=== PATIENT | female | born 2000 | race Caucasian/White ===

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

== ENCOUNTER 2020-01-19 09:00 | Outpatient (RCR) | payer OTHER, SELFPAY ==
[2019-12-01 10:11] VITALS: BMI 31.2
--- NOTE | 2019-12-08 11:47 | HP.OTEVAL_ITS ---
Patient's Visit Information ANYA ALEGRE is a 19 year old F, referred to Occupational Therapy by ELIZA STATON, with a diagnosis of left TFCC tear. 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 pt has sx on 11/01/19. pt staes she has some deep pain brusing sensation over her left RF/LF. pt was casted 4 weeks and arrives to therapy with orthoplast custom wrist cock- up. pt reports no need for ajd. at this time. pt is right handed but would like to gain ROM and strength in her left hand/UE to use with ADLs and IADLs ind. - Pain left wrist 2 Pain Intensity Range: 4 - ROM Forearm: right WNL left pronation 45 suppination 5 Wrist: right 75/70 left 40/20 ROM Comments: right RD [address] 5 UD 10 - Strength Residential Plumber: right 75# left Not tested Lateral Pinch: right 12# left Not tested Tripod Pinch: right 20# left Not tested - Sensation Sensation Comments: pt reports pt was having difficulty with strange sensation over dorsome of LF/RF from MP to just proximal to PIP - Goals Goal:100% adherence to protocol: Yes Comment: TFCC protocol Goal:ROM equal to unaffected hand: Yes Comment: wrist flex/ex within 10* of unaffected, sup/pron 80* Goal:Residential Plumber/Pinch strength at least 75% of unaffected hand: Yes Comment: when released to strengthen Goal:No pain with affected hand use: Yes Goal:Full use of affected hand in daily activities including: Yes Goal:Decrease scar hypersensitivity: Yes - Rehabilitation General Assessment: pt is currently 4 weeks and 3 days s/p from TFCC repair and ECU tenosynovectomy and tendon stabilization. PT demo with a decrease in left wrist ROM and limited use of left UE with ADLs and IADLs. Pt wouldl benefit from skilled OT services 1-2x week for 8 weeks to assitst pt in functional return of left UE for ADls and IADL ind. Today therapist review of AROM for wrist/forarm and digits followed with scar mtg. pt demo understanding and agree to POC Rehabilitation Potential: Good - Anticipated Interventions A/AAROM/PROM, Strengthening, Scar Care, Triggerpoint Release, Modalities, Orthoses, Joint Protection/Energy Conservation, Ergonomic Education, Fine Motor Coord/Milind - Visit Plan Frequency: 1-2x /Week Duration: 2 Months TEXT: Thank you for the opportunity to evaluate your patient. For Medicare and Medicare HMO plans, please review the plan of care and approve it. It will need to be FAXED BACK to us at [phone] for Medicare purposes. Please let me know if there are questions or concerns regarding this plan of care. Physician Signature: Date:
--- NOTE | 2019-12-08 11:49 | HP.OTEVAL_ITS ---
Patient's Visit Information ANYA ALEGRE is a 19 year old F, referred to Occupational Therapy by ELIZA STATON, with a diagnosis of left TFCC tear. 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 pt has sx on 11/01/19. pt staes she has some deep pain brusing sensation over her left RF/LF. pt was casted 4 weeks and arrives to therapy with orthoplast custom wrist cock- up. pt reports no need for ajd. at this time. pt is right handed but would like to gain ROM and strength in her left hand/UE to use with ADLs and IADLs ind. - Pain left wrist 2 Pain Intensity Range: 4 - ROM Forearm: right WNL left pronation 45 suppination 5 Wrist: right 75/70 left 40/20 ROM Comments: right RD [address] 5 UD 10 - Strength Licensing Registration Examiner: right 75# left Not tested Lateral Pinch: right 12# left Not tested Tripod Pinch: right 20# left Not tested - Sensation Sensation Comments: pt reports pt was having difficulty with strange sensation over dorsome of LF/RF from MP to just proximal to PIP - Quick DASH-Disab of Arm,Shoulder& Hand Quick DASH Score: 50.0000 - Goals Goal:100% adherence to protocol: Yes Comment: TFCC protocol Goal:ROM equal to unaffected hand: Yes Comment: wrist flex/ex within 10* of unaffected, sup/pron 80* Goal:Licensing Registration Examiner/Pinch strength at least 75% of unaffected hand: Yes Comment: when released to strengthen Goal:No pain with affected hand use: Yes Goal:Full use of affected hand in daily activities including: Yes Goal:Decrease scar hypersensitivity: Yes - Rehabilitation General Assessment: pt is currently 4 weeks and 3 days s/p from TFCC repair and ECU tenosynovectomy and tendon stabilization. PT demo with a decrease in left wrist ROM and limited use of left UE with ADLs and IADLs. Pt wouldl benefit from skilled OT services 1-2x week for 8 weeks to assitst pt in functional return of left UE for ADls and IADL ind. Today therapist review of AROM for wrist/forarm and digits followed with scar mtg. pt demo understanding and agree to POC Rehabilitation Potential: Good - Anticipated Interventions A/AAROM/PROM, Strengthening, Scar Care, Triggerpoint Release, Modalities, Orthoses, Joint Protection/Energy Conservation, Ergonomic Education, Fine Motor Coord/Milind - Visit Plan Frequency: 1-2x /Week Duration: 2 Months TEXT: Thank you for the opportunity to evaluate your patient. For Medicare and Medicare HMO plans, please review the plan of care and approve it. It will need to be FAXED BACK to us at [phone] for Medicare purposes. Please let me know if there are questions or concerns regarding this plan of care. Physician Signature: Date:
--- NOTE | 2020-01-17 08:30 | OTREVAL_ITS ---
ELIAZ STATON, It has been my pleasure to treat ANYA ALEGRE over the last 11 visits for left TFCC tear. Please see the progress note below for an update on the occupational therapy plan of care! Subjective: pt arrives to session without orthosis- states she forgot to put her orthosis on when she left home- reports she is IND with ADLs and IADLs. wearing orthosis at work. Objective/Function: left forearm supination 75*. left forearm pronation 80*. left wrist 80/75. pt demo full wrist ROM and still slight tightness with forearm sup/pronation but functional. pts left cut off saw tender metal strength 58# right is 80#. pt has made gains in her progress Plan Plan: pt to return to Dr. moctezuma D/C Goals - Goals Patient Goals: Regain Mobility, Decrease Pain, Use Hand/Wrist/Arm Normally Again Goal:100% adherence to protocol: Yes Goal:ROM equal to unaffected hand: Yes Goal:Cover Cutter Machine/Pinch strength at least 75% of unaffected hand: Yes Goal:No pain with affected hand use: Yes Goal:Full use of affected hand in daily activities including: Yes Goal:Decrease scar hypersensitivity: Yes Anticipated Interventions Anticipated Interventions: A/AAROM/PROM, Strengthening, Scar Care, Triggerpoint Release, Modalities, Orthoses, Joint Protection/Energy Conservation, Ergonomic Education, Fine Motor Coord/Milind Please do not hesitate to contact me at [phone] by phone or if you have questions or concerns regarding this new plan of care! Sincerely, Henrietta Moss, OTR/L, CHT
--- NOTE | 2020-01-19 11:31 | HP.OTDCSUM ---
It has been my pleasure to treat ANYA ALEGRE under orders from ELIZA STATON, for the diagnosis of left TFCC tear for a total of 12 visit(s). Please see the following information for a summary of their discharge status. % Improvement: 80 Objective/Function: left forearm supination 75*. left forearm pronation 80*. left wrist 80/75. pt demo full wrist ROM and still slight tightness with forearm sup/pronation but functional. pts left vice president of manufacturing strength 58# right is 80#. pt has made gains in her progress Patient Goals: Regain Mobility, Decrease Pain, Use Hand/Wrist/Arm Normally Again Goal:100% adherence to protocol: Yes Goal:ROM equal to unaffected hand: Yes Goal:Optomechanical Technician/Pinch strength at least 75% of unaffected hand: Yes Goal:No pain with affected hand use: Yes Goal:Full use of affected hand in daily activities including: Yes Goal:Decrease scar hypersensitivity: Yes Plan: D/C Discharge Comments: pt was seen for 12 OT visits following a TFCC repair- pt progressed and reached left wrist functional ROM and made gains with strength. pt has not had pain during her entire tx time with us. she has met goals and is currently dc with HEP to cont with keeping her ROM and gaining strength If there are questions or concerns regarding this patient's occupational therapy, please fell free to call me at [phone]. Thank you for the referral of this patient. Sincerely, Henrietta Moss, OTR/L, CHT
== END 2020-01-19 19:00 | disposition home or self-care (01) ==
LOC: OT 09:00
PROVIDERS: PCP Pediatrics
DX: S69.82XD Other specified injuries of left wrist, hand and finger(s), subsequent encounter (principal); S63.092D Other subluxation of left wrist and hand, subsequent encounter
CPT/HCPCS: 97110; 97140; 97166; 97530

== ENCOUNTER 2020-06-06 13:00 | Outpatient (RCR) | payer OTHER, SELFPAY ==
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
== END 2020-06-06 19:00 | disposition home or self-care (01) ==
LOC: PT 13:00
PROVIDERS: PCP Pediatrics
DX: S73.191D Other sprain of right hip, subsequent encounter (principal); Z98.890 Other specified postprocedural states
CPT/HCPCS: 97110; 97161

== ENCOUNTER → 2020-07-05 16:47 | Outpatient (CLI) | payer OTHER, SELFPAY ==
[2020-07-05 17:07] LABS: Absolute Lymphocyte Count 2.22 X10^3/uL (0.83-4.51); Absolute Neutrophil Count 4.2 X10^3/uL (2.0-7.7); Basophil# 0.06 X10^3/uL; Basophil% 0.8 % (0-1); Eosinophil# 0.08 X10^3/uL; Eosinophils% 1.1 % (0-5); Hematocrit 41.5 % (37-47); Hemoglobin 13.6 g/dL (12.0-15.0); Lymphocyte # 2.22 X10^3/ul (0.83-4.51); Lymphocyte % 30.9 % (19-41); Mean Corp Hgb Conc 32.8 g/dL (32-36); Mean Corpuscular Hgb 26.6 pg (27.0-32.0); Mean Corpuscular Volume 81.2 fL (81-99); Mean Platelet Vol. 9.1 fl (6.2-12.0); Monocyte# 0.59 X10^3/uL; Monocyte% 8.2 % (0-10); NRBC Flagged by Analyzer 0 % (0-5); Neutrophil # 4.21 X10^3/uL (2.7-7.7); Neutrophil % 58.6 % (47-70); Platelet Count 347 K/mm3 (150-450); RBC Distribution Width CV 11.9 % (11.6-14.6); Red Blood Count 5.11 M/mm3 (4.2-5.4); White Blood Count 7.2 K/mm3 (4.4-11.0)
[2020-07-05 17:50] LABS: Ferritin 8 ng/mL (8-252); Iron 42 ug/dL (50-170); Iron Binding Capacity,Total 572 ug/dL (250-450)
== END ==
PROVIDERS: PCP Pediatrics
DX: R53.83 Other fatigue (principal)
CPT/HCPCS: 36415; 82306; 82728; 83540; 83550; 85025

== ENCOUNTER 2021-04-21 14:10 | Outpatient (CLI) | payer OTHER, SELFPAY ==
--- NOTE | 2021-04-21 14:13 | RAD_ITS ---
STUDY: X-RAY - LEFT FOOT CLINICAL: Female, 20 years old. pt fell today, lateral and medial ankle and foot pain TECHNIQUE: 3 view(s) of the foot. COMPARISON: None. FINDINGS: Normal talus, calcaneus, and tarsal bones. Normal visualized subtalar, talonavicular, calcaneocuboid, tarsal and tarsometatarsal articulations. Normal metatarsi. Normal metatarsophalangeal joint of the great toe. Normal tibial and fibular sesamoid bones. Normal interphalangeal joint of the great toe. Normal phalanges of the great toe. Normal second through fifth metatarsophalangeal joints. Normal interphalangeal joints and phalanges of the lesser toes. The soft tissue structures are unremarkable. There is no demonstrated fracture. RAD/Foot min 3 Views IMPRESSION: Normal x-ray examination of the foot. Electronically Signed: Hansel Miller MD at 15:16 EDT ,
--- NOTE | 2021-04-21 14:13 | RAD_ITS ---
STUDY: X-RAY - LEFT ANKLE REASON FOR EXAM: Female, 20 years old. pt fell today, lateral and medial ankle and foot pain TECHNIQUE: 3 view(s) of the ankle. COMPARISON: None. FINDINGS: Normal visualized distal tibia and fibula. Normal medial and lateral malleoli. Normal tibiotalar articulation and ankle mortise. Normal visualized talus and calcaneus. The visualized subtalar, talonavicular, calcaneocuboid and tarsal articulations are normal. There is no demonstrated fracture. Mild soft tissue swelling is present around the ankle. RAD/Ankle min 3 Views IMPRESSION: Mild soft tissue swelling Electronically Signed: Hansel Miller MD at 15:16 EDT ,
== END 2021-04-21 23:59 | disposition home or self-care (01) ==
LOC: MTRAD 14:12
PROVIDERS: PCP Pediatrics; Referring Provider Physician Assistant; Visit Provider Physician Assistant
DX: S99.922A Unspecified injury of left foot, initial encounter (principal); S99.912A Unspecified injury of left ankle, initial encounter
CPT/HCPCS: 73610; 73630

== ENCOUNTER 2021-09-03 13:35 | Outpatient (CLI) | payer OTHER, SELFPAY ==
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
== END 2021-09-03 23:59 | disposition home or self-care (01) ==
LOC: MTRAD 13:36
PROVIDERS: PCP Pediatrics; Referring Provider Orthopaedic Surgery; Visit Provider Orthopaedic Surgery
DX: M25.562 Pain in left knee (principal)
CPT/HCPCS: 73564

== ENCOUNTER → 2021-09-15 | Outpatient (CLI) | payer OTHER, SELFPAY ==
--- NOTE | 2021-09-15 06:34 | MRI_ITS ---
STUDY: MRI LEFT KNEE REASON FOR EXAM: Medial left knee pain for a year, twisting injury. TECHNIQUE: Standardized fat and water weighted pulse sequences were obtained in all 3 orthogonal planes. COMPARISON: Radiographs 09/03/2021. FINDINGS: Normal medial meniscus. Normal hyaline cartilage of the medial femorotibial compartment. Normal medial femoral condyle and tibial plateau. There is a mild chronic sprain of the proximal medial collateral ligament (T2 coronal image 18; T2 axial images 13, 14). Normal distal semimembranosus, gracilis and semitendinosus tendons. Normal lateral meniscus. Normal hyaline cartilage of the lateral femorotibial compartment. Normal lateral femoral condyle and tibial plateau. Normal proximal tibiofibular articulation. Normal lateral collateral (fibular) ligament. Normal popliteus tendon. Normal biceps femoris tendon. Normal anterior cruciate ligament (ACL). Normal posterior cruciate ligament (PCL). Normal congruent patellofemoral articulation. Normal hyaline cartilage of the patellofemoral compartment. Normal medial and lateral patellar retinaculum. Normal visualized quadriceps tendon. Normal patellar tendon. Normal Hoffa''s fat pad. There is a minimal volume of fluid in the knee joint. There is a thin medial patellar plica. There is edema in the anterior subcutis adipose space. The otherwise visualized osseous structures are unremarkable. MRI/Lower Ext Joint Only (Routine) IMPRESSION: Mild chronic sprain of the medial collateral ligament. No demonstrated meniscal tear. Electronically Signed: Bashir Beaulieu MD at 8:10 EDT ,
[2021-09-15 12:06] LABS: Ferritin 77 ng/mL (8-252); Iron 119 ug/dL (50-170); Iron Binding Capacity,Total 392 ug/dL (250-450)
[2021-09-16 14:09] LABS: Endomysial Antibody IgA Negative (Negative)
[2021-09-16 17:11] LABS: Immunoglobulin A 167 mg/dL (87-352); t-Transglutaminase IgA <2 U/mL (0-3)
== END | disposition home or self-care (01) ==
PROVIDERS: PCP Pediatrics; Referring Provider Orthopaedic Surgery; Visit Provider Orthopaedic Surgery
DX: K52.9 Noninfective gastroenteritis and colitis, unspecified (principal); Z86.39 Personal history of other endocrine, nutritional and metabolic disease; M23.92 Unspecified internal derangement of left knee
CPT/HCPCS: 36415; 73721; 82728; 82784; 83516; 83540; 83550; 86140; 86255

== ENCOUNTER → 2021-09-17 | Outpatient (CLI) | payer OTHER, SELFPAY ==
[2021-09-17 15:36] LABS: Absolute Lymphocyte Count 2.28 X10^3/uL (0.83-4.51); Absolute Neutrophil Count 4.5 X10^3/uL (2.0-7.7); Basophil# 0.04 X10^3/uL; Basophil% 0.5 % (0-1); Eosinophil# 0.09 X10^3/uL; Eosinophils% 1.2 % (0-5); Lymphocyte # 2.28 X10^3/ul (0.83-4.51); Lymphocyte % 29.9 % (19-41); Mean Corp Hgb Conc 32.6 g/dL (32-36); Mean Corpuscular Hgb 27.9 pg (27.0-32.0); Mean Corpuscular Volume 85.8 fL (81-99); Mean Platelet Vol. 9.2 fl (6.2-12.0); Monocyte# 0.65 X10^3/uL; Monocyte% 8.5 % (0-10); NRBC Flagged by Analyzer 0 % (0-5); Neutrophil # 4.53 X10^3/uL (2.7-7.7); Neutrophil % 59.5 % (47-70); Platelet Count 349 K/mm3 (150-450); RBC Distribution Width CV 11.5 % (11.6-14.6); RBC Distribution Width SD 35.9 fl (35.1-43.9); Red Blood Count 5.01 M/mm3 (4.2-5.4); White Blood Count 7.6 K/mm3 (4.4-11.0)
[2021-09-21 20:17] LABS: Calprotectin, Stool 16 ug/g (0-120)
== END | disposition home or self-care (01) ==
LOC: LAB 14:55
PROVIDERS: PCP Pediatrics; Visit Provider Pediatrics
DX: K52.9 Noninfective gastroenteritis and colitis, unspecified (principal); Z86.39 Personal history of other endocrine, nutritional and metabolic disease
CPT/HCPCS: 83993; 85025; 87177; 87209

== ENCOUNTER → 2021-11-14 | Outpatient (CLI) | payer OTHER, SELFPAY ==
[2021-11-14 12:59] LABS: Absolute Lymphocyte Count 2.29 X10^3/uL (0.83-4.51); Basophil# 0.06 X10^3/uL; Basophil% 0.7 % (0-1); Eosinophil# 0.09 X10^3/uL; Eosinophils% 1.1 % (0-5); Hematocrit 43.7 % (37-47); Hemoglobin 14.1 g/dL (12.0-15.0); Lymphocyte # 2.29 X10^3/ul (0.83-4.51); Lymphocyte % 27.7 % (19-41); Mean Corp Hgb Conc 32.3 g/dL (32-36); Mean Corpuscular Hgb 27.8 pg (27.0-32.0); Mean Platelet Vol. 8.9 fl (6.2-12.0); Monocyte# 0.77 X10^3/uL; Monocyte% 9.3 % (0-10); NRBC Flagged by Analyzer 0 % (0-5); Neutrophil # 5.03 X10^3/uL (2.7-7.7); Neutrophil % 60.8 % (47-70); Platelet Count 368 K/mm3 (150-450); RBC Distribution Width CV 11.9 % (11.6-14.6); Red Blood Count 5.08 M/mm3 (4.2-5.4); White Blood Count 8.3 K/mm3 (4.4-11.0)
[2021-11-14 13:52] LABS: Ferritin 117 ng/mL (8-252); Iron 101 ug/dL (50-170); Iron Binding Capacity,Total 404 ug/dL (250-450)
== END | disposition home or self-care (01) ==
LOC: LAB 12:38
PROVIDERS: PCP Pediatrics; Referring Provider Pediatrics; Visit Provider Pediatrics
DX: D50.9 Iron deficiency anemia, unspecified (principal)
CPT/HCPCS: 36415; 82728; 83540; 83550; 85025

== ENCOUNTER → 2022-05-15 | Outpatient (CLI) | payer OTHER, SELFPAY ==
--- NOTE | 2022-05-15 13:02 | MRI_ITS ---
EXAM: MR LEFT LOWER EXTREMITY WITHOUT INTRAVENOUS CONTRAST, KNEE CLINICAL INDICATION: pain TECHNIQUE: Multiplanar and multisequence MR images of the left knee without intravenous contrast. This report was created using [employer] report generation technology. COMPARISON: None. FINDINGS: BONES/JOINTS: Question small area of focal osteochondral injury at the lateral patellar facet with focal bone marrow edema and directly overlying heterogeneous cartilage appearance. No other evidence for fracture. No other abnormal bone marrow signal. No synovial hypertrophy. No intra-articular body. EXTENSOR MECHANISM: Unremarkable. MEDIAL MENISCUS: Unremarkable. LATERAL MENISCUS: Unremarkable. MEDIAL CAPSULE/SUPPORTING STRUCTURES: Unremarkable. Intact. LATERAL CAPSULE/SUPPORTING STRUCTURES: Unremarkable. Lateral collateral ligamentous complex, inclusive of the popliteal tendon, are intact. ANTERIOR CRUCIATE LIGAMENT: Unremarkable. Intact. POSTERIOR CRUCIATE LIGAMENT: Unremarkable. Intact. MUSCLES: Unremarkable. CARTILAGE: Question small area of focal osteochondral injury at the lateral patellar facet with focal bone marrow edema and directly overlying heterogeneous cartilage appearance. Otherwise unremarkable. FLUID: Unremarkable. No joint effusion. OTHER SOFT TISSUES: Unremarkable. No popliteal cyst. MRI/Lower Ext Joint Only (Routine) IMPRESSION: Question small area of focal osteochondral injury at the lateral patellar facet with focal bone marrow edema and directly overlying heterogeneous cartilage appearance. No other significant internal derangement of the knee. Electronically Signed: Serafin Harrington MD at 19:22 EDT ,
== END | disposition home or self-care (01) ==
LOC: MRI 13:02
PROVIDERS: PCP Pediatrics; Referring Provider Orthopaedic Surgery; Visit Provider Orthopaedic Surgery
DX: M25.562 Pain in left knee (principal); M67.50 Plica syndrome, unspecified knee
CPT/HCPCS: 73721

== ENCOUNTER → 2022-09-23 | Outpatient (CLI) | payer OTHER, SELFPAY ==
--- NOTE | 2022-09-23 15:36 | RAD_ITS ---
INDICATION: pain EXAMINATION/TECHNIQUE: X-RAY - RIGHT XR Foot 3 VIEWS COMPARISON: FINDINGS: SOFT TISSUES: No soft tissue swelling or gas. No radiopaque foreign body. BONES/JOINTS: No acute fracture or subluxation.. Normal alignment. Preservation of the joint space.. No sclerotic or destructive changes observed. RAD/Foot min 3 Views IMPRESSION: No acute bony injury. Electronically Signed: Joseph Orosco DO at 16:52 EDT ,
== END | disposition home or self-care (01) ==
PROVIDERS: PCP Pediatrics; Referring Provider Physician Assistant; Visit Provider Physician Assistant
DX: M79.671 Pain in right foot (principal)
CPT/HCPCS: 73630